=== PATIENT | female | born 1985 | race African-American/Black ===

== ENCOUNTER 2023-03-11 16:54 | Observation (INO) | payer BC ==
[2023-03-11 18:11] LABS: Creatinine, Urine Less than 20.00 mg/dL (47-110); Protein, Urine Random Quant Less than 10 mg/dL (1-14)
[2023-03-11 19:17] LABS: Troponin I 0.171 ng/mL (< 0.028)
[2023-03-11] MEDS ORDERED: Acetaminophen 325 MG TAB PO PRN (20:04)
[2023-03-11 22:34] LABS: Magnesium 1.5 mg/dL (1.6-2.6)
[2023-03-11 22:35] LABS: PTT 32.6 sec (22.0-33.0); Prothrombin Time 10.6 sec (9.5-12.1)
[2023-03-11 22:41] LABS: Troponin I 0.086 ng/mL (< 0.028)
[2023-03-11] MEDS: HYDROcodone/Acetaminophen 5/325 mg Tablet PO PRN (22:41)
[2023-03-12 00:23] VITALS: BMI 23.5
[2023-03-12 05:21] LABS: #Monocytes 0.4 10x3/uL (0.0-1.1); #Neutrophils 3.3 10x3/uL (1.5-8.4); %Basophils 0.3 % (0.0-2.0); %Eosinophils 0.7 % (0.0-6.0); %Lymphocytes 36.7 % (18.0-47.0); Hematocrit 34.9 % (34.9-44.5); Hemoglobin 11.2 g/dL (12.0-15.5); Mean Corpuscular HGB CONC 32.1 g/dL (32.0-36.0); Mean Corpuscular Hemoglobin 30.7 pg (27.0-33.0); Mean Corpuscular Volume 95.6 fl (81.6-98.3); Mean Platelet Volume 8.7 fl (7.4-10.4); Platelet Count 339 10x3/uL (150-450); RBC Distribution Width 12.3 % (11.5-14.5); Red Blood Cell (RBC) Count 3.65 10x6/uL (3.90-5.03)
[2023-03-12 05:38] LABS: Anion Gap 13 mmol/L (10-20); BUN (Urea Nitrogen) 10 mg/dL (7.0-18.7); Calc. Creatinine Clearance 118 mL/min (70-130); Carbon Dioxide 21 mmol/L (22-29); Chloride 110 mmol/L (98-107); Estimated GFR 117; Glucose 89 mg/dL (70-105); Potassium 3.7 mmol/L (3.5-5.1); Sodium 140 mmol/L (136-145)
[2023-03-12] MEDS ORDERED: Magnesium 2 GM/50 ML(in water) 2 GM in Premix Bag 1 BAG IVPB SCH (07:30)
[2023-03-12] MEDS ORDERED: Aspirin 81 mg Enteric Coated Tablet PO SCH (09:00)
[2023-03-12] MEDS ORDERED: metFORMIN 500 MG TAB PO SCH (09:00)
[2023-03-12] MEDS: HYDROcodone/Acetaminophen 5/325 mg Tablet PO PRN (09:29)
[2023-03-12] MEDS ORDERED: Electrolyte Replacement Protocol 1 EACH FS SCH (13:45)
[2023-03-12 18:49] VITALS: BP 133/85; TEMP 98.2
[2023-03-13] MEDS ORDERED: valACYclovir 500 MG TAB PO SCH (09:00)
== END 2023-03-12 19:34 | disposition home or self-care (01) ==
LOC: CSHERS 16:54 → INTOOBSV 19:17 → CSHERHOLD 19:17 → CSHTELE 21:34
PROVIDERS: ADMIT Family Medicine; ATTEND Nurse Practitioner Family
DX: I47.10 Supraventricular tachycardia, unspecified (principal); E11.9 Type 2 diabetes mellitus without complications; R77.8 Other specified abnormalities of plasma proteins; Z79.84 Long term (current) use of oral hypoglycemic drugs; Z79.899 Other long term (current) drug therapy
CPT/HCPCS: 36415; 36416; 71275; 80048; 80053; 81001; 82570; 83615; 83735; 83880; 84156; 84439; 84443; 84484; 85025; 85379; 85610; 85730; 87086; 93005; 93010; 96360; 96361; 96365; 96374; 96375; G0378; J0360; J0696; J1650; J3475; Q9967